=== PATIENT | female | born 2005 | race Caucasian/White ===

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

== ENCOUNTER 2023-09-23 14:31 | Outpatient (CLI) | payer BC, SELFPAY | END 2023-09-23 14:32 | disposition home or self-care (01) | LOC: ANHLAB 14:32 | PROVIDERS: PCP Family Medicine; Visit Provider Obstetrics & Gynecology | DX: R35.0 Frequency of micturition (principal); R10.2 Pelvic and perineal pain | CPT/HCPCS: 87077; 87086; 87088; 87186 ==

== ENCOUNTER 2023-11-23 13:33 | Emergency (ER) | payer BC, SELFPAY ==
--- NOTE | ~2023-11-23 | XR_ITS ---
EXAMINATION: XR forearm LT 2V DATE: 11/23/2023 13:46 INDICATION: Ulnar-sided left wrist pain TECHNIQUE: AP an lateral views of the left forearm were obtained. COMPARISON: none FINDINGS: Alignment is normal. No fracture. Joint spaces are normal. Soft tissues are unremarkable. No left elb ow joint effusion. IMPRESSION: 1. Negative left forearm radiographs. Reviewed, dictated and finalized at location A.
[2023-11-23 13:34] VITALS: BP 117/54; PULSE 55; RESP 16; TEMP 36.3; O2SAT 100
--- NOTE | 2023-11-23 15:00 | ED.UPPEXIN ---
HPI - Extremity Injury (Upper) General Chief Complaint: Extremity Injury, Upper Stated Complaint: left forearm pain Time Seen by Provider: 11/23/23 14:06 Source: patient Mode of arrival: ambulatory Limitations: no limitations History of Present Illness HPI narrative: this is a 18-year-old female that presents to the emergency department after a continuing accident yesterday. Reports she believes she hit her forearm on a rock. Has had bruising and pain in the area since. Denies decreased range of motion. Related Data Allergies Allergy/AdvReac Type Severity Reaction Status Date / Time No Known Allergies Allergy Verified 11/23/23 13:41 Review of Systems Review of Systems: CONSTITUTIONAL: Denies fever MUSCULOSKELETAL: Reports joint pain, and myalgia. All systems reviewed & are unremarkable except as noted in HPI and below PMFSH Past Medical History Medical History Depression Ovarian cyst Social History Social History (Updated 09/09/23 @ 08:49 by Zarina Zelaya MA) Smoking status: Never smoker Alcohol intake: never Substance use: never Substance use type: does not use Current Housing: Decline to Answer Concerned About Future Housing: Decline to Answer Difficulty Paying Gas/Electric Bills: Decline to Answer Difficulty Paying for Meds: Decline to Answer Currently Unemployed: Decline to Answer Education: Decline to Answer Difficulty w/ Childcare or Family Care: Decline to Answer Living arrangements: with family Occupation/Education: student Additional occupation/education comments: college Gender identity (if verbalized by the patient): Female Sexual Orientation (if Verbalized by the Patient): Straight or Heterosexual Exam Narrative: GENERAL: Well-appearing, well-nourished, and in no acute distress. HEAD: Normocephalic, atraumatic. EYES: EOMI. EXTREMITIES: Normal range of motion. Area of mild bruising to the left distal distal forearm. Normal radial pulse SKIN: Warm, dry, no rash. NEURO: No focal deficits. Alert and oriented x3. PSYCH: Normal mood and affect Course Vital Signs Vital signs: Vital Signs Temperature 97.4 F L 11/23/23 13:34 Pulse Rate 55 L 11/23/23 13:34 Respiratory Rate 16 11/23/23 13:34 Blood Pressure 117/54 L 11/23/23 13:34 Pulse Oximetry 100 06/30/24 13:34 Oxygen Delivery Room Air 11/23/23 13:34 Temperature 97.4 F L 11/23/23 13:34 Pulse Rate 55 L 11/23/23 13:34 Respiratory Rate 16 11/23/23 13:34 Blood Pressure 117/54 L 11/23/23 13:34 Pulse Oximetry 100 11/23/23 13:34 Oxygen Delivery Room Air 11/23/23 13:34 MDM - Extremity Injury (Upper) MDM Narrative Medical decision making narrative: Patient presents to the emergency department after an injury continuing yesterday with bruising to left forearm. Left forearm x-rays without acute osseous abnormalities. Patient is neurovascularly intact. She was instructed on further care of contusion. She is to follow up with primary provider. She was given warnings to return to the ER Differential Diagnosis Differential diagnosis: Likely fracture of wrist and other ( contusion) Imaging Data Radiologist's impression: ITS Impressions Forearm X-Ray 11/23/23 13:53 IMPRESSION: 1. Negative left forearm radiographs. Critical Care Time Critical Care Time Critical Care Time: No Discharge Plan Discharge Clinical Impression: Contusion of forearm, left Qualifiers: Encounter type: initial encounter Qualified Code(s): S50.12XA - Contusion of left forearm, initial encounter Patient Disposition: Home, Self-Care Condition: Stable Instructions: Contusion in Adults (ED) Additional Instructions: Return to the ER if you experience fever, redness and swelling of your arm, or any other symptoms that are concerning to you Rest, use ice, take anti-inflammatories (Aleve, Ibuprofen, Naproxen, etc) o
[2023-11-23 15:06] VITALS: BP 127/82; PULSE 88; RESP 14; O2SAT 99
== END 2023-11-23 15:07 | disposition home or self-care (01) ==
PROVIDERS: Emergency Provider Physician Assistant; Referring Provider Emergency Medicine
DX: S50.12XA Contusion of left forearm, initial encounter (principal); W22.8XXA Striking against or struck by other objects, initial encounter; Y93.16 Activity, rowing, canoeing, kayaking, rafting and tubing
CPT/HCPCS: 73090; 99283

== ENCOUNTER 2024-07-30 09:58 | Outpatient (CLI) | payer BC, SELFPAY ==
--- NOTE | ~2024-07-30 | MR_ITS ---
EXAMINATION: MR brain/brain stem wo/w con DATE: 07/30/2024 10:33 INDICATION: Headache, unspecified. TECHNIQUE: Magnetic resonance imaging (MRI) of the brain and brainstem was performed without and with 10 mL ProHance intravenous contrast. COMPARISON: None. FINDINGS: There is no intracranial hemorrhage, acute infarction, or abnormal intracranial mass lesion . The ventricles are normal in size. There is mucosal thickening in the paranasal sinuses. The orbits are normal. The mastoid air cells are normal. IMPRESSION: 1. Normal brain. Reviewed, dictated and finalized at location A. UNICATIONS EXECUTIVE IMPRESSION: 1. Normal brain.
== END 2024-07-30 09:59 | disposition home or self-care (01) ==
PROVIDERS: PCP Family Medicine; Visit Provider Student in an Organized Health Care Education/Training Program
DX: R51.9 Headache, unspecified (principal)
CPT/HCPCS: 70553; A9579

== ENCOUNTER 2025-05-08 20:47 | Emergency (ER) | payer BC, SELFPAY ==
--- NOTE | ~2025-05-08 | XR_ITS ---
Examination: XR chest 2V Clinical History: syncope Comparison: None Technique: PA and Lateral Findings: Cardiomediastinal silhouette normal size and configuration. Lungs clear. No acute bony abnormality. IMPRESSION: 1. No acute cardiopulmonary findings. Reviewed, dictated and finalized at location R. UP ARTISTRY INSTRUCTOR
--- NOTE | ~2025-05-08 | CT_ITS ---
EXAMINATION: CT brain wo con DATE: 05/08/2025 23:03 INDICATION: Syncope. TECHNIQUE: Computed tomography (CT) of the head was performed without intravenous contrast. The mA was adjusted according to patient size. Iterative reconstruction technique was employed. The dose-length product was 529.67 mGy-cm. COMPARISON: Brain MRI 07/30/2024 FINDINGS: There is no intracranial hemorrhage, acute infarction, or abnormal intracranial mass lesion. The ventricles are normal in size. The orbits are normal. There is mild mucosal thickening in the paranasal sinuses. The mastoid air cells are normal. IMPRESSION: 1. Normal brain. Reviewed, dictated and finalized at location E. CTOR OF PRODUCT MARKETING IMPRESSION: 1. Normal brain.
--- OUTSIDE RECORDS SUMMARY | 2025-05-08 20:50 | XMS_ITS | Clinical Summary ---
Author Organization [facility] Address [address] [place] [address] Care Team Providers Care Internet Application Developer Name Role Phone Dominique Nair MD Primary Care Provider [phone] Source Comments [facility],non-owned Affiliates and Associated Physician Practices is amultiple site organization consisting of ambulatory clinics and hospital sitesin [place], [place], [place] and [place]. This disclosure is being madepursuant to the Care Everywhere program and may not contain all information available regarding this patient. Last updated 18.[facility] Allergies No known active allergies Medications * This document contains information received from the source organization and may not represent a complete record from that organization. * Be aware that medications may not be up to date on this document. Alwaysverify current medications with the patient. No known medications Active Problems Problem Noted Date Diagnosed Date Contusion of right knee 03/18/2017 Acute pain of right knee 03/04/2017 Family History Medical History Relation Name Comments Bipolar Disorder Mother Relation Name Status Comments Mother Social History Tobacco Use Types Packs/Day Years Used Date Smoking Tobacco: Never Smokeless Tobacco: Never Alcohol Use Standard Drinks/Week Comments No 0 (1 standard drink = 0.6 oz pur e alcohol) Comments No Sex and Gender Information Value Date Recorded Sex Assigned at Not on file Legal Sex Female 7:38 AM ASSURANCE ENGINEER Gender Identity Not on file Sexual Orientation Not on file Last Filed Vital Signs Vital Sign Reading Time Taken Comments Blood Pressure 102/56 06/02/2021 7:26 PM ASSURANCE ENGINEER Pulse 60 06/02/2021 7:26 PM ASSURANCE ENGINEER Temperature 36.9 C (98.5 F) 06/02/2021 7:26 PM ASSURANCE ENGINEER Respiratory Rate 16 06/02/2021 7:26 PM ASSURANCE ENGINEER Oxygen Saturation 99% 06/02/2021 7:26 PM ASSURANCE ENGINEER Inhaled Oxygen Concentration - - Weight 58.8 kg (129 lb 10.1 oz) 06/02/2021 7:26 PM ASSURANCE ENGINEER Height 156 cm (5' 1.42) 06/02/2021 7:26 PM ASSURANCE ENGINEER Body Mass Index 24.16 06/02/2021 7:26 PM ASSURANCE ENGINEER Plan of Treatment Health Maintenance Due Date Last Done Comments HIV SCREENING 10/17/2018 HPV VACCINE (1 - 3-dose series) 10/17/2018 CHLAMYDIA/GONORRHEA SCREENING 2019 MENINGOCOCCAL (Group B) VACC INE SHARED DECISION-MAKING (1 of 2 - Standard) 2019 HEPATITIS C SCREENING 10/13/2021 DTAP/TDAP/TD VACCINES (1 - Tdap) 10/17/2022 HEPATITIS B VACCINE (1 of 3 - 19+ 3-dose series) 10/17/2022 DEPRESSION SCREENING 05/26/2024 COVID-19 VACCINE (1 - 2024-2 6 season) 2025 INFLUENZA VACCINE (#1) 2025 ZOSTER VACCINE (1 of 2) 10/17/2053 HIB VACCINE Aged Out No longer eligi ble based on patient's age to complete this topic MENINGOCOCCAL GROUPS A/C/Y/W VACCINE Aged Out No longer eligible b ased on patient's age to complete this topic PNEUMOCOCCAL VACCINE Aged Out No long er eligible based on patient's age to complete this topic Insurance ANTHEM ANTHEM Care Teams Internet Application Developer Relationship Specialty Start Date End Date Dominique Nair MD [address] [place] [id number] PCP - General Family Medicine 05/26/21
[2025-05-08 20:55] VITALS: BP 127/62; PULSE 56; RESP 18; O2SAT 99
--- NOTE | 2025-05-08 20:58 | ECG_ITS ---
Test Date: 2025-05-08 21:07:03 Measurements Intervals [place] Rate: 55 P: 32 PA: 133 QRS: 55 QRSD: 81 T: 22 QT: 376 QTc: 361 Interpretive Statements SINUS BRADYCARDIA POSSIBLE RIGHT VENTRICULAR CONDUCTION DELAY BASELINE ARTIFACT- I, II, III, AVR BORDERLINE ECG No previous ECG available for comparison Electronically Signed On 05-09-2025 06:18:10 CUTTER OUT by David Baldwin D.O.
[2025-05-08 21:16] LABS: Hematocrit 38.8 % (37.0-47.0); Hemoglobin 13.1 g/dL (12.0-15.0); Immature Granulocyte Percent A 0.3 % (0-0.5); Lymphocytes Absolute Auto 4.50 K/mm3 (0.9-3.2); Mean Corpuscular HGB Conc 33.8 g/dl (32-36); Mean Corpuscular Hemoglobin 29.2 pg (26-34); Mean Corpuscular Volume 86.4 fl (80-100); Nucleated Red Blood Cells Absolute Auto 0.000 K/mm3 (0.0-0.012); Nucleated Red Blood Cells Perc 0.0 % (0.0-0.2); Platelet Count Result 212 k/mm3 (150-375); Red Blood Count 4.49 M/mm3 (4.2-5.4); White Blood Count 12.2 K/mm3 (4.5-10.0)
[2025-05-08 21:35] VITALS: BP 115/82; BP 119/61; PULSE 56; PULSE 86
[2025-05-08 21:36] VITALS: BP 120/78; PULSE 78
[2025-05-08 21:37] LABS: BEDSIDEPREGUCG Negative (Negative)
[2025-05-08 21:42] LABS: Alanine Aminotransferase 23 U/L (6-35); Albumin Level 4.2 g/dL (3.5-5.1); Alkaline Phosphatase 47 U/L (38-126); Anion Gap 5 mmol/L (4-12); Aspartate Amino Transferase 23 U/L (14-36); Bilirubin,Total 0.8 mg/dL (0.2-1.3); Blood Urea Nitrogen 9 mg/dL (7-17); Calcium 9.2 mg/dL (8.4-10.2); Carbon Dioxide 23 mmol/L (22-30); Chloride 109 mmol/L (98-107); Estimated CRCL calculation 78 ml/min; Estimated Glomerular Filt Rate > 60; Glucose 92 mg/dL (65-110); Potassium 3.5 mmol/L (3.4-5.0); Sodium 137 mmol/L (137-145); Total Protein 7.1 g/dL (6.3-8.2)
[2025-05-08 21:54] LABS: Add Urine Microscopic? YES; Appearance Urine Cloudy (Clear); Glucose Urine UA Negative (Negative); Leukocyte Esterase Ur 2+ LEU/UL (Negative); Need Manual Microscopic Reviewed; Nitrate Urine Positive (Negative); Non Pathogenic Casts 0-2; Specific Grav Ur 1.020 (1.001-1.035)
--- NOTE | 2025-05-08 22:10 | ED_ITS ---
HPI - General Adult General Chief complaint: Syncope Stated complaint: syncope Time Seen by Provider: 05/08/25 20:52 History of Present Illness HPI narrative: 19 year old female presenting for a syncopal episode. Patient's family members state she slumped in her chair and was out for 15-20 seconds noting no convulsive movements and that her eyes remained open. Denies hitting her head, nausea/vomiting, fever/chills, urinary incontinence. Patient has a significant history of migraines reporting she had an MRI a few months ago which had no significant findings. Related Data Allergies Allergy/AdvReac Type Severity Reaction Status Date / Time No Known Allergies Allergy Verified 12/20/24 16:26 Review of Systems 2 Review of Systems: All systems reviewed & are unremarkable except as noted in HPI and below PMFSH Past Medical History Medical History Ovarian cyst Depression Social History Social History Smoking status: Never smoker Alcohol intake: never Substance use: never Substance use type: does not use Current Housing: Decline to Answer Concerned About Future Housing: Decline to Answer Difficulty Paying Gas/Electric Bills: Decline to Answer Difficulty Paying for Meds: Decline to Answer Currently Unemployed: Decline to Answer Education: Decline to Answer Difficulty w/ Childcare or Family Care: Decline to Answer Living arrangements: with family Occupation/Education: student Additional occupation/education comments: college Gender identity (if verbalized by the patient): Female Sexual Orientation (if Verbalized by the Patient): Straight or Heterosexual Exam 2 Narrative: GENERAL: Well-appearing, well-nourished, and in no acute distress. HEAD: Normocephalic, atraumatic. EYES: PERRLA and EOMI. ENT: Nares clear, no rhinorrhea or epistaxis. Mucous membranes moist. Oropharynx without tonsillar hypertrophy exudate or other lesions. Bilateral TMs pearly gomez non-bulging NECK: Supple. No adenopathy or masses. No carotid bruits or JVD CHEST: Clear to auscultation. No respiratory distress. No wheezes rales or rhonchi HEART: Regular rate and rhythm. No murmur heard. Normal peripheral pulses. ABDOMEN: Soft, nontender, nondistended, normal active bowel sounds. EXTREMITIES: Normal range of motion. No edema. SKIN: Warm, dry, no rash. NEURO: A&O X3. Speech clear. Follows commands. CN II-XII intact. Sensation grossly intact. Steady gait. No ataxic movements. Strength 5/5 in upper and lower extremities bilaterally. Qaxr-dz-xylv and lfevpu-ch-ehlw testing intact bilaterally. No pronator drift. PSYCH: Normal mood and affect Course Vital Signs Vital signs: Vital Signs Pulse Rate 56 L 05/08/25 20:55 Respiratory Rate 18 05/08/25 20:55 Blood Pressure 127/62 05/08/25 20:55 Pulse Oximetry 99 05/08/25 20:55 Oxygen Delivery Room Air 05/08/25 20:55 Pulse Rate 78 05/08/25 21:36 Respiratory Rate 18 05/08/25 20:55 Blood Pressure 120/78 05/08/25 21:36 Pulse Oximetry 99 05/08/25 20:55 Oxygen Delivery Room Air 05/08/25 20:55 [facility] MDM Narrative Medical decision making narrative: 19 year old female presenting for a syncopal episode. Patient's family members state she slumped in her chair and was out for 15-20 seconds noting no convulsive movements and that her eyes remained open. Denies hitting her head, nausea/vomiting, fever/chills, urinary incontinence. Patient has a significant history of migraines reporting she had an MRI a few months ago which had no significant findings. Patient's episode of near-syncope is not felt to be due to a high risk cause. Near-syncopal episode was brief and patient is now back to normal mental status. VS stable throughout ED visit. EKG is reviewed and without high-risk changes for syncope: There are no signs of prolonged QT or Brugada syndrome. Patient ambulates with a steady gait and is felt to be a reasonable candidate for further outpatient evaluation and management. Given a neurology referral and a referral for primary care per patient's family member's request. Given reasons to return. Differential Diagnosis Differential Diagnosis: Differential diagnostic considerations for syncope include arrythmia, valvular heart disease, ACS, vasovagal or orthostatic syncope, SECURITY CONTROL ASSESSOR lesion such as CVA, TIA, seizure, pulmonary embolism, complete atrioventricular block, vertebrobasilar insufficiency. Medical Records I have reviewed the following patient records and this information was taken into consideration when formulating the assessment and plan.: previous labs, previous ER visits and previous clinic visits Lab Data MDM Lab Attestation statement: I personally reviewed the patient's lab results. 05/08/25 21:08 05/08/25 21:08 Labs: Lab Results 05/08/25 05/08/25 05/08/25 Range/Units 21:08 21:32 21:35 WBC 12.2 H (4.5-10.0) K/mm3 RBC 4.49 (4.2-5.4) M/mm3 Hgb 13.1 (12.0-15.0) g/dL Hct 38.8 (37.0-47.0) % MCV 86.4 (80-100) fl MCH 29.2 (26-34) pg MCHC 33.8 (32-36) g/dl RDW 12.7 (11.5-14.5) % Plt Count 212 (150-375) k/mm3 MPV 13.0 H (7.4-10.4) fl Immature Gran % (Auto) 0.3 (0-0.5) % Neut % (Auto) 54.4 (45.5-73.1) % Lymph % (Auto) 36.9 (18.3-44.2) % [place] % (Auto) 5.8 (2.6-8.5) % Eos % (Auto) 2.1 (0-4.4) % Baso % (Auto) 0.5 (0.2-1.2) % Lymph # (Auto) 4.50 H (0.9-3.2) K/mm3 [place] # (Auto) 0.7 H (0.1-0.6) K/mm3 Eos # (Auto) 0.3 (0-0.3) K/mm3 Baso # (Auto) 0.1 (0.0-0.1) K/mm3 Abs Immat Gran (auto) 0.04 H (0.00-0.031) K/mm3 Absolute Neuts (auto) 6.6 (1.3-6.7) K/mm3 Absolute Nucleated RBC 0.000 (0.0-0.012) K/mm3 Nucleated RBC % 0.0 (0.0-0.2) % Sodium 137 (137-145) mmol/L Potassium 3.5 (3.4-5.0) mmol/L Chloride 109 H (98-107) mmol/L Carbon Dioxide 23 (22-30) mmol/L Anion Gap 5 (4-12) mmol/L BUN 9 (7-17) mg/dL Creatinine 0.78 (0.7-1.0) mg/dL Estim Creat Clear Calc 78 ml/min Estimated GFR > 60 (59 - ) Glucose 92 (65-110) mg/dL Calcium 9.2 (8.4-10.2) mg/dL Total Bilirubin 0.8 (0.2-1.3) mg/dL AST 23 (14-36) U/L ALT 23 (6-35) U/L Alkaline Phosphatase 47 (38-126) U/L Total Protein 7.1 (6.3-8.2) g/dL Albumin 4.2 (3.5-5.1) g/dL Urine Color Yellow (Yellow) Urine Appearance Cloudy H (Clear) Urine pH 7.5 (5.0-9.0) Ur Specific [place] 1.020 (1.001-1.035) Urine Protein Trace (Negative) mg/dL Urine Glucose (UA) Negative (Negative) mg/dL Urine Ketones Trace H (Negative) mg/dL Ur Blood (Man) Negative (Negative) Urine Nitrate Positive H (Negative) Urine Bilirubin Negative (Negative) Urine Urobilinogen 1.0 (<2.0) mg/dL Add Ur Microanalysis Reviewed Leukocyte Esterase Rfl 2+ H (Negative) BOBO/UL Urine RBC 0-2 (0-2) /hpf Urine WBC 51-100 H (0-3) /hpf Ur Squamous Epith Cells Moderate (Few) /hpf Urine Bacteria 4+ /hpf Urine Casts 0-2 POC Urine HCG, Qual Negative (Negative) Imaging Data Attestation: I personally reviewed and interpreted this imaging study as follows: Radiologist's impression: ITS Impressions Chest X-Ray 05/09/25 06:33 IMPRESSION: 1. No acute cardiopulmonary findings. Head CT 05/09/25 06:57 IMPRESSION: 1. Normal brain. ECG Data EKG #1: ECG completion date: 05/08/25 ECG completion time: 21:07 bradycardia, sinus rhythm and no acute changes Discharge Plan Discharge Clinical Impression: Syncope Patient Disposition: Home Condition: Stable Instructions: Syncope (ED) Additional Instructions: Return to the emergency department if you experience fever, chest pain, shortness of breath, abdominal pain with nausea and vomiting, weakness, numbness/tingling, or any other symptoms that are concerning to you. A neurology referral has been provided for concerns for seizure-like activity. Follow up with primary care doctor for other general concerns. Patient Language: Kiswahili Prescriptions: No Action sumatriptan succinate 50 mg tablet See Rx Instructions PO .COMPLEX Qty: 7 6RF Rx Instructions: take 1 tab at onset of headache; if no relief may repeat 1 tab after at least 2 hrs; max = 4 tabs/24 hr PO norethindrone ac-eth estradiol [Loestrin 1.5/30 (21)] 1.5-30 mg-mcg tablet 1 tablet PO DAILY Qty: 84 5RF Rx Instructions: take 1 tablet daily in a continuous manner skipping cycles aripiprazole [Abilify] 2 mg tablet 2 mg PO DAILY Qty: 90 1RF Follow-up/Referrals: Chepe,MD Lupe [Primary Care Provider, Family Practice] Elise Cash MD [Physician, Neurology] Asad Mcbride MD [Physician, Family Practice]
== END 2025-05-09 00:37 | disposition home or self-care (01) ==
PROVIDERS: Student in an Organized Health Care Education/Training Program; PCP Family Medicine
DX: R55 Syncope and collapse (principal); F32.A Depression, unspecified; Z79.3 Long term (current) use of hormonal contraceptives; Z79.899 Other long term (current) drug therapy
CPT/HCPCS: 36415; 70450; 71046; 80053; 81001; 81025; 85025; 93005; 99284